=== PATIENT | female | born 1945 | race Caucasian/White ===

== ENCOUNTER 2017-04-25 18:09 | Inpatient (IN) | payer MEDICARE ==
[~2017-04-25] VITALS: Ht 157.5 cm; Wt 149.5 kg
--- NOTE | ~2017-04-25 | US84 ---
[id number] [facility] [address] [place], [place] [address] [id number] MR#: [id number] Acc #: [id number] NAME: HEIDY ROSALES : 1945 SEX: F STUDY DATE/TIME: 04/25/2017 21:41 UNIT: CEDOF ROOM: 42861 STUDY DESCRIPTION: US LE Veins Complete John Stdy Attending Physician: Francia Basilio M.D. Ordering Physician: Migue Juarez M.D. Primary Care Physician: Maribell Holman M.D. MEDICAL IMAGING REPORT This report is preliminary unless electronic signature is present EXAM Bilateral lower extremity venous ultrasound HISTORY Bilateral lower extremity cellulitis, chronic for 2 years with increased pain for 2 weeks. TECHNIQUE Venous ultrasound examination of both lower extremities was performed using grayscale, spectral Doppler and color flow Doppler imaging. FINDINGS The examination is negative. There is no evidence of deep venous thrombus from the groin to the lower calf bilaterally. Visualized greater saphenous veins are also patent. IMPRESSION Negative examination. No evidence of lower extremity deep venous thrombosis. Dictated by... Per Patel M.D. THIS IS AN ELECTRONICALLY VERIFIED REPORT Per Patel M.D. at 04/26/2017 8:42 PM DFL/poojar TD: 04/26/2017 02:16 JOB #: [id number] MEDICAL IMAGING REPORT Page 1 of 1 COPY
--- NOTE | ~2017-04-25 | HP ---
Unit #: [id number] #: [id number] Patient: HEIDY ROSALES [id number] [address] [place], [place] [address] [id number] I MR#: [id number] NAME: HEIDY ROSALES. ROOM: 476 Age: 71 Sex: F Admission Date: 04/25/2017 : 1945 Attending Physician: Francia Basilio M.D. Primary Care Physician: Maribell Holman M.D. HISTORY AND PHYSICAL CHIEF COMPLAINT Left lower extremity swelling and redness. HISTORY OF PRESENT ILLNESS Ms. Rosales is a 71-year-old morbidly obese female who went to her primary care provider and was started on p.o. antibiotics. It was not getting better . She came to emergency room for further evaluation and was admitted for worsening of left lower extremity, failed p.o. antibiotics. The patient does complain of some burning sensation. Does not complain of fevers, chills or rigors. Does not complain of any nausea or vomiting. She has had these kind of issues in the past also. PAST MEDICAL HISTORY 1. History of COPD 2. History of sleep apnea. 3. History of lung cancer status post chemotherapy and radiation therapy. 4. History of morbid obesity. 5. History of former smoker. PAST SURGICAL HISTORY 1. Cholecystitis. 2. Port placement. SOCIAL HISTORY The patient lives at home. She has past history of smoking. No history of alcohol abuse or drug abuse. FAMILY HISTORY She has a strong family history of early menses. The patient's brother had intestinal cancer, which had spread to bones. The patient has family history of breast cancer also. ALLERGIES No know drug allergies. HOME MEDICATIONS 1. Bumex 2 mg twice a day 2. Ceftinir 300 mg q.12 3. Potassium 20 mEq twice a day REVIEW OF SYSTEMS As per history of presenting illness. No history of fevers, chills or rigors. No history of nausea or vomiting. No history of chest pain. No history of orthopnea or paroxysmal nocturnal dyspnea. No history of abdominal pain. No history of constipation or diarrhea. No history of Unit #: [id number] #: [id number] Patient: HEIDY ROSALES dizziness or syncopal episode. PHYSICAL EXAMINATION GENERAL: The patient is being evaluated in room 476. VITAL SIGNS: Blood pressure is 134/59, respiratory rate 18, pulse rate 92, temperature 98.1. HEENT: Head is Normocephalic. Eye movements are normal. NECK: Supple. CHEST: Fair air entry. No additional sounds. CARDIOVASCULAR: S1 is positive. Regular rhythm. ABDOMEN: Obese. No tenderness. EXTREMITIES: Both extremities are swollen, left is much more than the right. There is redness present. There is a blister present under the lower thigh above the knee. Edema is present. There is some fungal infection on bilateral feet on plantar aspect noted. CENTRAL NERVOUS SYSTEM: The patient is awake, alert, and oriented x3. No focal neurologic deficit. DIAGNOSTIC STUDIES LABORATORY: WBC 7.1, hemoglobin 13.4, hematocrit 40.5 and platelet count of 259,000. Sodium 137, potassium 3.4, chloride 99, BUN 14, creatinine 0.7. Ultrasound of lower extremities shows no DVT. Blood cultures were done which is no growth at this time. ASSESSMENT AND PLAN The patient is being admitted to Medical/Surgical unit: 1. Left lower extremity cellulitis, p.o. antibiotics until deep venous thrombosis has been ruled out. 2. Chronic obstructive pulmonary disease. 3. History of lung cancer. 4. Morbid obesity. 5. Former smoker. Plan is admit to Medical/Surgery. Infectious disease doctor consult. IV Vancomycin 1 gram q. 12 Lovenox 40 mg subcutaneous daily. Lotrimin ointment applied to feet bilateral. Potassium was replaced. Mini Neb treatment on p.r.n. basis. Lab work to be done tomorrow morning. Ambien 5 mg at bedtime p.r.n. as the patient is complaining of not able to sleep. Tylenol 650 every 6 p.r.n. Plan of care has been discussed with patient at length. Dictated by Manny Isaac/kajal TD: 04/26/2017 15:38 JOB #: [id number] Unit #: [id number] #: [id number] Patient: HEIDY ROSALES HISTORY AND PHYSICAL Page 1 of 1 X Francia Basilio MD X HISTORY AND PHYSICAL
--- NOTE | ~2017-04-25 | DS ---
Unit #: [id number] #: [id number] Patient: HILARIA ROSALES [id number] [address] [address] [id number] I MR#: [id number] NAME: HILARIA ROSALES. ROOM: 476 Age: 71 Sex: F Admission Date: 04/25/2017 : 1945 Discharge Date: 04/29/2017 Attending Physician: Francia Basilio M.D. Primary Care Physician: Maribell Holman M.D. DISCHARGE SUMMARY FINAL DIAGNOSES 1. Bilateral lower extremity cellulitis, left more than right. 2. Bilateral venous stasis. 3. Deep venous thrombosis has been ruled out. 4. Chronic obstructive pulmonary disease. 5. History of lung cancer. 6. Morbid obesity. DISCHARGE MEDICATIONS 1. Doxycycline 100 mg p.o. b.i.d. 2. Bumex 2 mg b.id.. 3. Tylenol on a p.r.n. basis. 4. Potassium 20 mEq b.i.d. 5. Erythromycin 100 mg twice a day for seven days. LAB WORKUP ON DISCHARGE Sodium 140, potassium 3.5, chloride 100, BUN 11, creatinine 0.9, WBC 6.2, hemoglobin 12.3, hematocrit 37.2 and platelet count of 207. Venous Doppler was negative for DVT. BNP on admission 175. Blood cultures x2 negative. HOSPITAL COURSE Ms. Hilaria Rosales is a 71-year-old, morbidly obese female, who was admitted with bilateral lower extremity swelling and redness, left more than right. The patient was diagnosed with cellulitis, failed p.o. antibiotics. Started on IV vancomycin. Dr. Flores was consulted. Patient did receive some nystatin ointment and cream for the feet as she does have a fungal infection. She is doing much better at this time. Her redness has improved. Patient will need compression stocking after her infection is cleared. She is going to be discharged home as antibiotic has been changed to doxycycline p.o. b.i.d. for seven days. She is doing much better. EXAMINATION ON DISCHARGE Blood pressure 126/57, respiratory rate 16, pulse is 100, temperature 98.9 and saturation is 98%. HEAD is normocephalic. CHEST has fair air entry, no additional sounds. CVS is regular rhythm. EXTREMITIES - much reduced redness and swelling of the left lower extremity although there is still some on the lower part of the left leg. Unit #: [id number] #: [id number] Patient: HILARIA ROSALES DISCHARGE INSTRUCTIONS The patient is being discharged home in stable condition. Follow up with primary care provider in one week. Follow up with Dr. Flores in [facility] Friday p.m. Dictated by... Francia Basilio M.D. NIRMALA/garland TD: 05/02/2017 08:27 JOB #: [id number] DISCHARGE SUMMARY Page 1 of 1 X Francia Basilio MD X DISCHARGE SUMMARY
--- NOTE | ~2017-04-25 | BMI ---
[facility] Nutrition Therapy DATE: 04/26/17 Patient: HEIDY ROSALES Physician: AMIRA Address: [address] [place] [address] Room/Bed: [address] [place] [address], Zip: [place] [address] Admit Date: 04/25/17 Date of : [birth year] Height: 5 2 Weight: 306 138.79 HIGH BMI NOTE: DX: 71 y/o female admitted with L leg cellutitis ANTHROPOMETRICS: Ht: 62", Wt: 139 kg, BMI: 56 (stage III obese) DIET: Regular INTERVENTION: Restricted diet, meds/fluids per MD RECOMMENDATIONS: Consider changing diet to healthy heart to promote a gradual weight loss towards a healthy BMI range. Respectfully, Emily Juarez RD, LD [facility] cc: client file
--- NOTE | ~2017-04-25 | CO ---
Unit #: [id number] #: [id number] Patient: HEIDY ROSALES [id number] [address] [address] [id number] I MR#: [id number] NAME: HEIDY ROSALES. ROOM: 476 Age: 71 Sex: F Admission Date: 04/25/2017 : 1945 Attending Physician: Francia Basilio M.D. Primary Care Physician: Maribell Holman M.D. Consultation Date: 04/26/2017 CONSULTATION REPORT REASON FOR CONSULTATION Left lower extremity cellulitis. HISTORY OF PRESENT ILLNESS This is a 71-year-old, morbidly obese, female with a history of multiple medical problems and chronic edema, venostasis and recurrent cellulitis, who was admitted with what appears to be pain, redness and swelling of both lower extremities, worse on the left. She had no significant fever or leukocytosis and apparently had failed oral antibiotics given by her primary care physician. She was started on vancomycin. I was asked to see her for further evaluation. The patient is currently stable. She was on BiPAP when I saw her. She does complain of swelling and erythema of both legs, worse on the left, but no fever or chills. She appears to have had similar episodes in the past. There are no open wound, recent injury or lymphangitis like lesions. PAST MEDICAL HISTORY COPD, morbid obesity, sleep apnea, history of lung cancer, requiring chemoradiation in the past, previous smoker. PAST SURGICAL HISTORY Cholecystectomy and port placement. SOCIAL HISTORY The patient lives at home. Previous history of smoking. No history alcohol or drug abuse. FAMILY HISTORY Positive for early cancer. ALLERGIES None. MEDICATIONS Home medications; Bumex, cefdinir and potassium chloride. Medications in the hospital include Klor-Con, bumetanide, Lotrimin, Tylenol, Combivent, Ambien, Protonix, Lovenox, vancomycin. REVIEW OF SYSTEMS Left lower extremity pain, redness and swelling. Right lower extremity pain and redness, but left one is worse. There is no fever or chills. No open wounds or red streaky lesions. She denies any shortness of breath, abdominal pain, dysuria, nausea, vomiting, or diarrhea. Unit #: [id number] #: [id number] Patient: HEIDY ROSALES PHYSICAL EXAMINATION GENERAL: Revealed elderly white female, who is morbidly obese. Awake and alert, in no acute distress. VITAL SIGNS: Temperature 98, pulse 90, respirations 18, blood pressure 112/43. No fever was documented during this admission. NECK: Supple. Oral hygiene is poor. There is no JVD. SKIN: She has bilateral venostasis, erythema, tenderness and increased warmth. How much of this is cellulitis versus dependent rubor is unclear, but clearly the signs are worse on the left lower extremity. There is no induration, lymphangitis, abscess or any open wounds. ABDOMEN: Grossly obese. Soft and nontender. LUNGS: Clear to percussion and auscultation. HEART: Sounds muffled. NEUROLOGIC: Nonfocal. DIAGNOSTIC STUDIES LABORATORY RESULTS: BNP is 175. Blood cultures are negative at 24 hours. Sodium 137, potassium 3.4, chloride 99, CO2 of 31, glucose 115, BUN 14, creatinine 0.7. White count 7.1, hemoglobin 13.4, platelets 259. Differential count is normal. IMAGING STUDIES: Doppler ultrasound of the lower extremity shows no evidence of DVT. IMPRESSION Bilateral lower extremity venostasis with dependent rubor. Findings are worse on the left. The cellulitis on the left side is difficult to exclude, although my suspicion is low. RECOMMENDATIONS I agree with vancomycin for now since the patient has failed beta-lactamase as an outpatient. I will recommend elevation of left lower extremity. The patient was also advised to use compression stockings when cellulitis resolves to prevent recurrence of these symptoms. Further recommendation will follow. Dictated by... Manny Norman/ar TD: 04/26/2017 23:14 JOB #: [id number] CONSULTATION REPORT Page 1 of 1 X Kishore Talley MD CONSULTATION REPORT
[~2017-04-25 18:09] MED LIST: ALB/IPRATROPIUM/1 E1 INH; ALBUTEROL17 GM INH; BROVANA15 MCG/2 M INH; BUMEX1 MG PO; DESENEX45 G1 EXT; DESENEX45 G1 TOP; FLEXERIL10 MG PO; IBUPROFEN600 MG PO; KCL PO; LASIX80 MG PO; MULTI-DAY VITAM1 TAB PO; PERCOCET5/325 PO; POTASSIUM CHLO10 MEQ DOB; PULMICORT0.5 MG/2 M INH
[2017-04-25 21:30] LABS: BASOPHIL# 0.1 X10e3 (0-0.3); BASOPHIL% 0.8 % (0-2.5); EOSINOPHIL# 0.2 X10e3 (0-0.7); EOSINOPHIL% 2.5 % (0.0-7.0); HEMATOCRIT 40.5 % (35.0-45.0); HEMOGLOBIN 13.4 gm/dL (12.0-16.0); LYMPHOCYTE# 1.7 X10e3 (1.0-3.5); LYMPHOCYTE% 23.2 % (17.0-45.0); MEAN CELL VOLUME 91.2 FL (83-96); MEAN CORPUSCULAR HEMOGLOBIN 30.2 PG (28-34); MEAN CORPUSCULAR HGB CONC 33.2 g/dL (30-36); MEAN PLATELET VOLUME 7.4 FL (6.5-11.5); MONOCYTE# 0.7 X10e3 (0-1.0); MONOCYTE% 10.3 % (3.0-12.0); NEUTROPHIL# 4.5 X10e3 (1.5-7.1); NEUTROPHIL% 63.2 % (40-75); PLATELET COUNT 259 X10e3 (140-420); RED BLOOD COUNT 4.44 X10e (3.90-5.30); RED CELL DISTRIBUTION WIDTH 14.8 % (11.0-15.5); WHITE BLOOD COUNT 7.1 X10e3 (4.0-10.5)
[2017-04-25 21:31] LABS: DIFF IND NO
[2017-04-25 21:54] LABS: CALCIUM SERUM 8.6 mg/dL (8.4-10.2); CREATININE SERUM 0.7 mg/dL (0.6-1.4); GLOM FILT RATE Estimated 87.8 mL/min (>60); POTASSIUM 3.4 mmol/L (3.5-5.1)
[2017-04-25] MEDS ORDERED: BUMEX2 MG PO (22:39)
[2017-04-25] MEDS ORDERED: CEFDINIR300 M2 PO (22:39)
[2017-04-25] MEDS ORDERED: K-DUR20 ME1 PO (22:39)
[2017-04-27 03:04] LABS: CALCIUM SERUM 8.4 mg/dL (8.4-10.2); CREATININE SERUM 0.8 mg/dL (0.6-1.4); GLOM FILT RATE Estimated 74.8 mL/min (>60); POTASSIUM 3.7 mmol/L (3.5-5.1)
[2017-04-29 03:20] LABS: HEMATOCRIT 37.2 % (35.0-45.0); HEMOGLOBIN 12.3 gm/dL (12.0-16.0); MEAN CELL VOLUME 91.6 FL (83-96); MEAN CORPUSCULAR HEMOGLOBIN 30.2 PG (28-34); MEAN PLATELET VOLUME 7.5 FL (6.5-11.5); RED BLOOD COUNT 4.06 X10e (3.90-5.30); RED CELL DISTRIBUTION WIDTH 14.9 % (11.0-15.5); WHITE BLOOD COUNT 6.2 X10e3 (4.0-10.5)
[2017-04-29 03:51] LABS: BUN/CREATININE RATIO 12.22; CALCIUM SERUM 8.3 mg/dL (8.4-10.2); CREATININE SERUM 0.9 mg/dL (0.6-1.4); GLOM FILT RATE Estimated 64.8 mL/min (>60); POTASSIUM 3.5 mmol/L (3.5-5.1)
[2017-04-29] MEDS ORDERED: DOXYCYCLINE HY100 M3 PO (14:02)
[2017-04-29] MEDS ORDERED: ACETAMINOPHEN PO (14:03)
[2017-04-29] MEDS ORDERED: ITCH RELIEF15 G1 TOP (14:04)
[2017-04-29] MEDS ORDERED: NYSTATIN1 EAC4 TOP (14:05)
[2017-04-29] MEDS ORDERED: DESENEX45 G1 EXT (14:06)
== END 2017-04-29 14:47 | disposition home or self-care (01) | DRG 603 ==
LOC: CED 18:09 → CEDOF 22:15 → CED 23:03 → CEDOF 04-26 08:14 → C4C 04-26 08:14
PROVIDERS: Emergency Medicine; Physician Assistant Medical
DX: L03.116 Cellulitis of left lower limb (principal); Z68.43 Body mass index [BMI] 50.0-59.9, adult; J44.9 Chronic obstructive pulmonary disease, unspecified; L03.115 Cellulitis of right lower limb; I87.8 Other specified disorders of veins; E66.01 Morbid (severe) obesity due to excess calories; Z87.891 Personal history of nicotine dependence; Z90.49 Acquired absence of other specified parts of digestive tract; Z85.118 Personal history of other malignant neoplasm of bronchus and lung
CPT/HCPCS: 36415; 80048; 80202; 83880; 85025; 85027; 87040; 93970; 94640; 94760; 96374; 99285; J1650; J3370

== ENCOUNTER → 2017-05-12 | Outpatient (CLI) | payer MEDICARE, BC ==
[~2017-05-12] MED LIST changes: +ACETAMINOPHEN PO; +BUMEX2 MG PO; +CEFDINIR300 M2 PO; +DOXYCYCLINE HY100 M3 PO; +ITCH RELIEF15 G1 TOP; +K-DUR20 ME1 PO; +NYSTATIN1 EAC4 TOP
--- NOTE | ~2017-05-12 | US98 ---
[facility] A Service of [facility] / [facility] RADIOLOGY TEXT RESULTS PATIENT: HEIDY ROSALES LOCATION: [facility] : [birth year] UNIT #: [id number] AGE: [address]: Maribell Holman MD SEX: F ORDER DR: [id number] [facility] [address] [place], [place] [address] [id number] MR#: [id number] Acc #: [id number] NAME: HEIDY ROSALES : 1945 SEX: F STUDY DATE/TIME: 05/12/2017 9:09 UNIT: [facility] ROOM: STUDY DESCRIPTION: US Pelvic Non-OB Complete Attending Physician: Maribell Holman M.D. Referring Physician: Maribell Holman M.D. Ordering Physician: Maribell Holman M.D. Primary Care Physician: Maribell Holman M.D. MEDICAL IMAGING REPORT This report is preliminary unless electronic signature is present EXAM Transabdominal pelvic ultrasound. DATE 05/12/2017 HISTORY 71-year-old female abnormal uterine bleeding which began 3 weeks ago, into last Friday night. Last menstrual period at the age of 51. COMPARISON None FINDINGS The study is technically limited secondary to the patient's morbid obesity and immobility. Transvaginal imaging was attempted but the patient was too uncomfortable and transvaginal imaging had to be discontinued. Transabdominal imaging only was performed. Uterus measures approximately 8.2 x 2.1 x 3.3 cm. No focal myometrial lesion is seen. Endometrial bilayer measures about 3 mm thickness, to the extent that can be visualized, without focal abnormality identified. No definite pelvic free fluid or pelvic mass lesion is identified. Neither the right nor the left ovary could be seen. IMPRESSION 1. The study is limited, due to patient's inability to tolerate transvaginal imaging, morbid obesity, and relative immobility. 2. The uterus and endometrium, to the extent it can be visualized, appear grossly unremarkable. 3. The ovaries cannot be visualized. [facility] A Service [facility] RADIOLOGY TEXT RESULTS PATIENT: HEIDY ROSALES LOCATION: [facility] : 47 UNIT #: [id number] AGE: [address]: Maribell Holman MD SEX: F ORDER DR: Dictated by... Samantha Breaux M.D. THIS IS AN ELECTRONICALLY VERIFIED REPORT Samantha Breaux M.D. at 05/15/2017 8:52 AM ZI/regina TD: 05/12/2017 17:59 JOB #: [id number] MEDICAL IMAGING REPORT Page 1 of 1 COPY
== END | disposition home or self-care (01) ==
LOC: CWCC 08:34
DX: N93.9 Abnormal uterine and vaginal bleeding, unspecified (principal); E66.01 Morbid (severe) obesity due to excess calories; K59.8 Other specified functional intestinal disorders
CPT/HCPCS: 76856